=== PATIENT | male | born 1995 | race Caucasian/White ===

== ENCOUNTER 2023-03-10 15:50 | Emergency (ER) | payer BC, SELFPAY ==
--- NOTE | ~2023-03-10 | XR_ITS ---
EXAMINATION: XR WRIST, LEFT CLINICAL INFORMATION: Left wrist pain COMPARISON: 03/18/2015 TECHNIQUE: PA, lateral, and oblique views of the left wrist. FINDINGS: There is nonunion of remote fracture of the scaphoid with right cleft in the waist of the scaphoid and increased attenuation of distal fragment possibly due to osteonecrosis. There is spurring at the medial aspect of the radius. There is soft tissue swelling seen dorsally. 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
[2023-03-10 15:52] VITALS: BP 130/79; PULSE 78; RESP 16; TEMP 36.8; O2SAT 96; BMI 22.3
--- NOTE | 2023-03-10 15:53 | ED_ITS ---
HPI - General Adult General Chief complaint: Extremity Injury, Upper Stated complaint: fell left wrist inj Time Seen by Provider: 03/10/23 17:24 Source: patient, RN notes reviewed and old records reviewed Mode of arrival: ambulatory History of Present Illness HPI narrative: 27-year-old male with no significant past medical history presenting to the ED complaining of left wrist pain and swelling s/p FOOSH injury while skateboarding yesterday. Admits fell off skateboard on to left wrist, denies head trauma or LOC. denies numbness, tingling, weakness or injury to the area. Does report history of fracture to left wrist or hand a few years ago, patient unclear which bone was broken Onset (ago): hour(s) Related Data Allergies Allergy/AdvReac Type Severity Reaction Status Date / Time No Known Allergies Allergy Verified 03/10/23 15:56 [No Known Allergies*] Review of Systems Review of Systems: Constitutional: No Weight loss, No Fever, No Chills ENT/Mouth: No Ear Pain, No Nasal Congestion, No sore throat, No Rhinorrhea, No Swallowing Difficulty Cardiovascular: No Chest Pain, No SOB Respiratory: No Cough, No Sputum Gastrointestinal: No Nausea, No Vomiting, No Abdominal pain Musculoskeletal: + joint pain, No Myalgias, + Joint Swelling Skin: No Skin Lesions, No rash Neuro: No Weakness, No Numbness, No Paresthesias Yes all other systems are reviewed and are negative Constitutional: Constitutional: Reports as per [facility] Past Medical History Attestation statement: The following information was validated with the patient. Source: old records reviewed Social History Social History Advance Directives: No Advance Directives Information Provided: Yes Physical Exam ED Vital Signs: Vital Signs - 24 hr 03/10/23 15:52 Temperature 98.2 F Pulse Rate 78 Respiratory Rate 16 Blood Pressure 130/79 Pulse Oximetry 96 Oxygen Delivery Method Room Air BMI result Body Mass Index 22.3 Const General: cooperative, healthy appearing and no acute distress Orientation/consciousness: patient oriented x3 Limitations: no limitations HENMT Head: Yes normal to inspection and Yes atraumatic Ears: hearing grossly normal bilaterally General nose exam: Normal external nose present Face and sinus: Yes normal facial exam Eyes General: appearance normal, both eyes and all related structures EOM: EOMs intact bilaterally Neck Neck: Yes normal visual inspection and Yes no meningeal signs Resp Effort & Inspection: normal respiratory effort and no respiratory distress Cardio Rate: regular rate Skin Rashes: no rashes Wounds: no wounds Neuro General: patient oriented x3, tone normal and no meningeal signs Gait exam (Neuro): Normal gait present Extrem Other: + left wrist with noted swelling to volar radial aspect w/mild tenderness. Full range of motion to digits intact. Finger to thumb opposition intact. Wrist ROM mildly limited secondary to pain. NV intact. + snuffbox tenderness Course Course Course Narrative: This is an RME: Additional HPI, ROS, PE not included below will be deferred to primary provider. 27 year old male presents w/ 12/20 constant left wrist pain s/p FOOSH while skateboarding yesterday. Pain worse w/ movement better at rest. Has fx this wrist in the past. Intermittent tingling no numbness. No fevers or chills. No head strike or LOC. No traumatic injuries to neck, chest, abd, or pelvis. Plan- imaging. 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 ? > will consult Orthopedics, Dr. 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 Recommended clinic follow-up -patient placed in thumb spica splint, recommended close orthopedic follow-up Results discussed with patient including worrisome signs and symptoms and strict return precautions, and when to return to the emergency department. They verbalized understanding and feel safe for discharge at this time. Medical Decision Making Medical Decision Making MDM Narrative: 27-year-old male with no significant past medical history presenting to the ED complaining of left wrist pain and swelling s/p FOOSH injury while skateboarding yesterday. On exam vital signs stable, NAD, nontoxic appearing, physical exam as noted above with left wrist swelling and tenderness > radial aspect. + snuffbox tenderness. Concern for fracture versus sprain. Plan: X-rays Please refer to course for remaining clinical decision making, interpretation of labs/imaging results, and discussions with consultants and/or family members. Differential Diagnosis Differential Diagnoses: The differential diagnosis associated with the presentation includes As above Consult Healthcare Provider Management of the patient was discussed with: Installer Technician (Orthopedics, Dr. Zhou) Radiology Impression Discussion of test interpretation with radiology: I have reviewed the radiologist's reading. External Record Review External record reviewed: Inpatient record, Office record, Outpatient record, Prior outpatient labs, Prior outpatient radiology, Primary care record and Outside ED record Tests considered The following testing was considered but not selected: As above Discharge Plan Discharge Clinical Impression: Fracture of scaphoid, Osteonecrosis of scaphoid Patient Disposition: Home, Self-Care Instructions: Scaphoid Fracture (ED) Additional Instructions: Your x-ray shows a remote fracture of her scaphoid bone in your wrist. There is some nonunion and questionable osteonecrosis, which is likely old Keep splint on, dry and clean. Ice and elevate You need to follow-up with the project controls specialist If her fingers become increasingly swollen, discolored or numb or pain is unbearable remove splint return to the ED immediately Referrals: [facility] [Provider Group] - 1 week
== END 2023-03-10 18:39 | disposition home or self-care (01) ==
PROVIDERS: Emergency Provider Internal Medicine
DX: S62.002A Unspecified fracture of navicular [scaphoid] bone of left wrist, initial encounter for closed fracture (principal); M87.3 Other secondary osteonecrosis; M25.532 Pain in left wrist; W01.0XXA Fall on same level from slipping, tripping and stumbling without subsequent striking against object, initial encounter; Y93.9 Activity, unspecified; Y92.9 Unspecified place or not applicable; Y99.9 Unspecified external cause status
CPT/HCPCS: 29125; 73100; 99282; 99283